=== PATIENT | female | born 1970 | race Caucasian/White ===

== ENCOUNTER → 2020-07-08 | Outpatient (CLI) | payer OTHER ==
--- NOTE | 2020-07-09 08:36 | REP ---
INDICATION: UTERINE LEIOMYOMA COMPARISON: None. TECHNIQUE: Transabdominal pelvic ultrasound followed by transvaginal examination for better evaluation of the endometrium and adnexa with color Doppler evaluation of the ovaries. FINDINGS: Bladder is unremarkable and measures 13.3 x 12.3 x 9.2 cm. Heterogeneous myomatous anteverted uterus measures 10.5 x 5.5 x 8.8 cm. The endometrial complex measures is poorly evaluated due to mass effect from adjacent myomatous changes. No obvious endocervical fluid noted. A posterior fibroid measures 3.7 x 2.5 x 2.6 cm. A right fundal fibroid identified measuring 2.5 x 2.3 x 2.2 cm. Multiple scattered less well-defined fibroids are also suggested. Bilateral ovaries are normal in appearance and vascularity without evidence for torsion. Right ovary measures 2.7 x 1.4 x 2.8 cm; R I = 0.55. Left ovary measures 5.8 x 3.5 x 6.6 cm and includes 5.2 x 5.1 x 3.2 cm simple cyst; R I = 0.60. No significant pelvic fluid or obvious adnexal mass lesion. IMPRESSION: Enlarged heterogeneous myomatous uterus with poorly defined endometrium. 5.2 cm left ovarian cyst. If necessary consider re-evaluation in 4-6 weeks to evaluate for resolution. <Electronically signed by Gómez Ornelas > 07/09/20 0822
== END ==
LOC: M WHC 13:32
PROVIDERS: ATTEND Obstetrics & Gynecology
DX: D25.9 Leiomyoma of uterus, unspecified (principal)

== ENCOUNTER → 2020-07-24 | Outpatient (CLI) | payer OTHER ==
--- NOTE | 2020-07-25 01:35 | REP ---
INDICATION: CARPAL TUNNEL. COMPARISON: None. TECHNIQUE: AP and lateral views of the right wrist. FINDINGS: Carpal bones are intact and normal. Joint spaces are normal. Surrounding soft tissues are unremarkable. IMPRESSION: Normal age-appropriate right wrist radiographs <Electronically signed by Gómez Ornelas > 07/25/20 0131
== END ==
LOC: M SOG 11:58
PROVIDERS: ATTEND Orthopaedic Surgery Sports Medicine
DX: G56.01 Carpal tunnel syndrome, right upper limb (principal)

== ENCOUNTER → 2020-08-08 | Outpatient (CLI) | payer OTHER ==
[~2020-08-08] MED LIST: ADDE15CA3 PO; ADDE1TAB20 PO; D 1010002 PO; D31000TA2 PO; MAGN400C2 PO; SM M250T PO
== END ==
LOC: M LABSMTC 10:40
PROVIDERS: ATTEND Anesthesiology
DX: Z01.812 Encounter for preprocedural laboratory examination (principal); Z20.822 Contact with and (suspected) exposure to COVID-19

== ENCOUNTER 2020-08-13 10:58 | Day surgery (SDC) | payer OTHER ==
[~2020-08-13] VITALS: Ht 165.1 cm; Wt 89.8 kg
[~2020-08-13 10:58] MED LIST changes: +LIDOCAINE 1% MDV 20ML VIAL SQ PRN; +LR 1,000 ML IV ONE; +ceFAZolin SOD 2 GM in IV 1 EA IV ONE
[2020-08-13] MEDS ORDERED: ONDANSETRON 4MG/2ML VIAL As Ordered ONE (12:51)
[2020-08-13] MEDS ORDERED: LIDOCAINE 2% 100MG/5ML SDV (FOR ANES.) As Ordered ONE (12:51)
[2020-08-13] MEDS ORDERED: fentaNYL 100 MCG/2 ML INJECTION (J3010) As Ordered ONE (12:53)
[2020-08-13] MEDS ORDERED: propofoL 500 MG/50 ML VIAL As Ordered ONE (12:53)
[2020-08-13] MEDS ORDERED: MIDAZOLAM INJ 2MG/2ML VIAL (J2250 PER 1MG) As Ordered ONE (12:53)
[2020-08-13] MEDS ORDERED: BUPIVACAINE/EPIN 0.25% 30 ML VIAL As Ordered ONE (13:38)
[2020-08-13 15:27] VITALS: BP 111/58
--- NOTE | 2020-08-13 15:44 | RO ---
OPERATIVE NOTE DATE OF OPERATION: 08/13/2020 SURGEON: Jeff Sanz MD. TECHNICIAN PREVENTATIVE MEDICINE: Lobo. TYPE OF ANESTHESIA: Local/MAC. PREOPERATIVE DIAGNOSIS: Right carpal tunnel syndrome. POSTOPERATIVE DIAGNOSIS: Right carpal tunnel syndrome. PLANNED PROCEDURE: Right open carpal tunnel release. PROCEDURE PERFORMED: Right open carpal tunnel release. OPERATIVE PREAMBLE: This is a 50-year-old female with signs and symptoms consistent with carpal tunnel syndrome. She wished to go ahead with carpal tunnel release. I marked her right upper extremity. The patient was wondering about cubital tunnel. Unfortunately, we were not able to perform a cubital tunnel release potentially for her today, as she is unable to undergo general anesthetic due to concern for tuberculosis, so decided to make the decision to proceed with open carpal tunnel release despite her having some symptoms in the fourth and fifth digits and also with symptoms that seemed to be coming from the median nerve in the first three digits. She had no further questions and wished to proceed. I marked the right upper extremity. OPERATIVE REPORT: The patient was brought to the operating theater. The bed was turned 90 degrees. The patient was placed supine on the operating room table. Then, 2 grams of IV Ancef was administered. Local sedation was used. The limb was prepped and draped in the usual sterile fashion with chlorhexidine based prep solution allowing over three minutes for prep solution drying time prior to draping. An 18-inch tourniquet was used on the right upper extremity, however, not inflated. Preoperative timeout was performed to confirm the site, the patient, and surgery. I began by using 4 cc of 0.25% Marcaine with 1:100,000 epinephrine in and around the proposed incision site. The proposed incision site was longitudinal just distal to the wrist crease in line with the fourth digit ulnar border. Once the patient was properly anesthetized, I made a small one-half inch incision centered in that area. I carried dissection down through skin and subcutaneous tissue achieving meticulous hemostasis. I incised the palmar fascia in line with the skin incision, as well as the transverse carpal ligament in line with the skin incision, fully proximally and distally, ensuring complete release. I made a small leaflet from the radial side of the transverse carpal ligament. I ensured a complete release. I thoroughly irrigated the wound followed by closure of the subcutaneous tissue with 2-0 Vicryl sutures and 3-0 Ethilon in a horizontal mattress fashion and one simple suture distally. The skin was cleaned with a wet-to-dry dressing followed by application of Xeroform 4 x 8 gauze and then over-wrapped with Silvia dressing. The patient was woken up from sedation and transferred off of the operating room table and taken to the postanesthesia care unit in stable condition. All sponge counts, needle counts, and instrument counts were correct. Estimated blood loss 10 mL. PLAN: 1. The plan for patient is to have gentle range of motion of the hand, wrist, and elbow. 2. Follow up in the office in two weeks' time. 3. Change dressing on postop day one and avoid getting it wet for the first two weeks. 4. Prescription is being sent to her pharmacy of choice electronically with appropriate narcotic counseling.
== END 2020-08-13 15:50 | disposition home or self-care (01) ==
LOC: M SDC 10:58
PROVIDERS: ATTEND Orthopaedic Surgery Sports Medicine
DX: G56.01 Carpal tunnel syndrome, right upper limb (principal); K21.9 Gastro-esophageal reflux disease without esophagitis; G43.909 Migraine, unspecified, not intractable, without status migrainosus; F43.10 Post-traumatic stress disorder, unspecified; Z79.899 Other long term (current) drug therapy; Z88.8 Allergy status to other drugs, medicaments and biological substances
CPT/HCPCS: 64721; J0690; J2250; J2405; J3010

== ENCOUNTER → 2020-08-13 | Outpatient (REF) | payer OTHER | LOC: M SFHCWAGY 08-12 17:39 | PROVIDERS: ATTEND Obstetrics & Gynecology | DX: D25.9 Leiomyoma of uterus, unspecified (principal) ==

== ENCOUNTER → 2020-08-20 | Outpatient (CLI) | payer OTHER ==
[~2020-08-20] MED LIST changes: -LIDOCAINE 1% MDV 20ML VIAL SQ PRN; -LR 1,000 ML IV ONE; -ceFAZolin SOD 2 GM in IV 1 EA IV ONE
== END ==
LOC: M LABSMTC 09:38 → MERGE 09:40
PROVIDERS: ATTEND Anesthesiology
DX: Z01.812 Encounter for preprocedural laboratory examination (principal); Z20.822 Contact with and (suspected) exposure to COVID-19

== ENCOUNTER 2020-08-25 08:09 | Day surgery (SDC) | payer OTHER ==
[2020-08-25] VITALS (8 sets, daily range): BP systolic 100–115; BP diastolic 56–64
[~2020-08-25] VITALS: Ht 165.1 cm; Wt 91.1 kg
[~2020-08-25 08:09] MED LIST changes: +LR 1,000 ML IV ONE; +ceFAZolin SOD 2 GM in IV 1 EA IV ONE
[2020-08-25] MEDS ORDERED: dexameTHASONE 4 MG/ML 1ML VIAL (J1100 PER 1MG) As Ordered ONE (08:27)
[2020-08-25] MEDS ORDERED: LIDOCAINE 2% 100MG/5ML SDV (FOR ANES.) As Ordered ONE (08:27)
[2020-08-25] MEDS ORDERED: MIDAZOLAM INJ 2MG/2ML VIAL (J2250 PER 1MG) As Ordered ONE (08:27)
[2020-08-25] MEDS ORDERED: fentaNYL 100 MCG/2 ML INJECTION (J3010) As Ordered ONE (08:27)
[2020-08-25] MEDS ORDERED: propofoL 200 MG/20 ML VIAL As Ordered ONE (08:27)
[2020-08-25] MEDS ORDERED: SUGAMMADEX SODIUM 500 MG/5 ML VIAL (BRIDION) As Ordered ONE (08:27)
[2020-08-25] MEDS ORDERED: ONDANSETRON 4MG/2ML VIAL As Ordered ONE (08:27)
[2020-08-25] MEDS ORDERED: KETOROLAC 60MG 2ML VIAL As Ordered ONE (08:27)
[2020-08-25] MEDS ORDERED: ACETAMINOPHEN 1000MG 100ML IV BTL (OFIRMEV) (J0131 PER 10MG) As Ordered ONE (08:27)
[2020-08-25] MEDS ORDERED: ROCURONIUM BROMIDE 50 MG/5 ML VIAL As Ordered ONE ×2 (08:27→10:52)
[2020-08-25] MEDS ORDERED: HYDROmorphone HCL 2 MG/ML 1ML VIAL (J1170) As Ordered ONE (08:28)
[2020-08-25 08:39] LABS: HEMATOCRIT 40.3 % (36.0-47.0); HEMOGLOBIN 13.1 g/dl (12.0-15.5); MEAN CORPUSCULAR HEMOGLOBIN 29.4 pg (27.0-33.0); MEAN CORPUSCULAR HGB CONC 32.5 g/dl (32.0-36.5); MEAN CORPUSCULAR VOLUME 90.6 fl (80.0-96.0); PLATELET COUNT, AUTOMATED 322 10^3/uL (150-450); RED BLOOD COUNT 4.45 10^6/uL (4.00-5.40); WHITE BLOOD COUNT 5.2 10^3/uL (4.0-10.0)
[2020-08-25 09:02] LABS: HCG, SERUM QUALITATIVE NEGATIVE (NEGATIVE)
[2020-08-25] MEDS ORDERED: BUPIVACAINE HCL 0.25% 30ML VIAL As Ordered ONE (09:07)
[2020-08-25] MEDS ORDERED: METHYLENE BLUE 0.5% (5MG/ML) 10 ML AMP (PROVAYBLUE) As Ordered ONE (09:07)
[2020-08-25] MEDS ORDERED: SCOPOLAMINE 1MG TRANSDERMAL PATCH TOP ONE (09:25)
--- NOTE | 2020-08-25 11:58 | ROOPDOC ---
[facility] Report Of Operation Report of Operation DATE OF PROCEDURE: 08/25/2020 PREPROCEDURE DIAGNOSES: Chronic pelvic pain, uterine leiomyomas, ovarian cysts POSTPROCEDURE DIAGNOSES: Same (enlarged bilateral ovarian cysts) PROCEDURE: Robotic-assisted total laparoscopic hysterectomy, bilateral salpingo- oophorectomy, cystoscopy SURGEON: Evgeny Diaz D.O. FACOG COMPUTER INSTRUCTOR: Amada Farmer (essential role as first coat sander in all steps of the procedure, especially uterine manipulation) ANESTHESIA: General endotracheal. ESTIMATED BLOOD LOSS: Approximately 150 mL. FLUIDS REPLACED: 1500 mL LR URINE OUTPUT: 200 mL COMPLICATIONS: None. FINDINGS: Abnormal ovaries bilaterally; enlarged, cystic masses on each ovary, about 5-6 cm in greatest dimension per ovary. Although the original surgical plan was to retain both ovaries, the possibility of bilateral oophorectomy was discussed preoperatively should one or both ovaries look abnormal at the time of surgery. Uterus was approximately 11 centimeters in greatest dimension. Cystoscopy: Bilateral ureteral orifice efflux, no bladder injury/suture material. PREOPERATIVE ANTIBIOTIC PROPHYLAXIS: Ancef 2 g IV 1. SPECIMEN(S): Uterus w/ cervix, bilateral fallopian tubes and ovaries DESCRIPTION OF PROCEDURE: The patient was counseled, consented on the respective benefits, indications, alternatives of procedure. Informed consent was obtained. She was taken to the operating room with an IV running. She was placed on the operating table in dorsal supine position. Gen. anesthesia was administered and the airway was secured without any difficulty. She was placed in the low lithotomy position. . She was prepared and draped in the normal sterile fashion. A time out was performed per protocol. A Garvin catheter was placed under sterile conditions. A sterile speculum was placed resulting in good visualization of the cervix. A single-tooth tenaculum was used to grasp the anterior lip cervix. The cervix was sequentially dilated with Chadwick dilators. A V-Care uterine manipulator was placed without any difficulty. The single-tooth tenaculum was removed, as well as the speculum. A sterile glove switch was performed. Attention was turned to the abdomen. A 2mm incision was made in the umbilicus, and through this incision a Veress needle was inserted into the intraperitoneal cavity. Intraperitoneal placement was confirmed with ease of flow of normal saline, positive drop test, no return on aspiration, and an opening pressure of less than 10 mmHg upon initial insufflation. The abdomen was insufflated with 2 L of gas. The Veress needle was removed. A supraumbilical 8 mm incision was made. Through this incision, the robotic trochar/cannula was inserted into the intraperitoneal cavity under direct visualization. No incidental bleeding nor injury was noted. Patient was placed in 30 Trendelenburg. The right and left trocars/cannulas were placed on both the right and left side through 8 mm incisions, guided by laparoscopic visualization. No incidental bleeding nor injury was noted. The robot was docked in typical fashion. The instruments were inserted, guided by laparoscop ic visualization. My attention was turned to the robotic console. Using the vessel sealer device, the right and left fallopian tubes were amputated. The fallopian tubes were brought through the assist-port cannula without any difficulty. The right uter o-ovarian ligament and right round ligament were sequentially clamped, coagulated and transected with the vessel sealer device. The vesicouterine peritoneum was dissected with the vessel sealer device to create the bladder flap, thus mobilizing the lower uterine segment and cervix off of the bladder. The right uterine vasculature was sequentially clamped, coagulated and transected above and medial to the rim of the colpotomy cup. The left utero- ovarian ligament and left round ligament were sequentially clamped, coagulated and transected with the vessel sealer device. The remainder of the bladder flap was dissected using the vessel sealer device and blunt dissection. The left uterine vasculature was sequentially clamped, coagulated and transected above and medial to the rim of the colpotomy cup. The outline of the entire V- care colpotomy cup was able to be delineated. Excellent blanching of the uterus was noted. A circumferential colpotomy was performed using the da Hernan monopolar margarito, following the contour of the cup. The amputated cervix and uterus were brought through the colpotomy into and out of the vagina, intact as one unit. The right IP ligament was identified and elevated. The right ureter was identified and noted to be well away from the planned surgical pedicle. The right IP ligament was sequentially clamped, coagulated and transected with the vessel sealer device. The amputated right ovary and fallopian tube were put into the vagina through the colpotomy. In similar fashion, the left IP ligament was identified and elevated. The left ureter was identified and noted to be well away from the planned surgical pedicle. The left IP ligament was sequentially clamped, coagulated and transected with the vessel sealer device. Amputated left ovary and fallopian tube were put into the vagina through the colpotomy. All specimens were removed from the vagina and sent to pathology for permanent section. A laparotomy sponge was placed in a sterile glove and then placed into the vagina to maintain pneumoperitoneum. The colpotomy was closed with the V-lock barbed suture in running fashion, thus creating the vaginal cuff. Excellent hemostasis was noted throughout the steps above. Rere was placed over the vaginal cuff to ensure hemostasis. The in struments were removed from the abdomen and the robot was un-docked. The gas was released from the abdomen and the patient was taken out of Trendelenburg. I re-scrubbed, and attention was turned to the pelvis. The Garvin catheter was removed. The cystoscope was placed transurethrally into the bladder and normal saline was instilled. No bladder injury/suture material was noted. IV methylene blue had been administered by anesthesia and bilateral UO efflux was confirmed. The fluid was drained out of the bladder through the cystoscope device, then the cystoscope was removed. The vagina was copiously irrigated. A sterile digital vaginal exam revealed no significant bleeding and an intact vaginal cuff. A sterile glove switch was performed. The da Hernan cannulas were removed. The skin incisions were closed with 4-0 Monocryl in subcuticular fashion. Sponge, needle and instrument counts were correct per protocol. The patient tolerated the entire procedure very well. She was transferred to the PACU in good and stable condition. DO JIGNA Rubin JONATHAN R. DO Aug 25, 2020 11:58
[2020-08-25] MEDS ORDERED: OXYC1TAB23 PO (11:59)
[2020-08-25] MEDS ORDERED: COLA100C5 PO (12:00)
[2020-08-25] MEDS ORDERED: IBUP80TA PO (12:00)
[2020-08-25] MEDS ORDERED: ONDANSETRON 4MG/2ML VIAL IV PRN ×2 (12:10→12:15)
[2020-08-25] MEDS ORDERED: LR 1,000 ML IV SCH (12:10)
[2020-08-25] MEDS ORDERED: fentaNYL 100 MCG/2 ML INJECTION (J3010) IV PRN (12:10)
[2020-08-25] MEDS ORDERED: HYDROMORPHONE HCL 0.5 MG/ 0.5 ML SYRINGE (J1170 PER 1) IV PRN (12:10)
[2020-08-25] MEDS: oxyCODONE 5MG TAB PO PRN ×2 (12:12→12:45)
[2020-08-25] MEDS ORDERED: PERCOCET 5MG/325MG TAB PO PRN (12:15)
[2020-08-25] MEDS ORDERED: diphenhydrAMINE 50MG/ML VIAL (J1200) IV PRN (12:15)
[2020-08-25] MEDS ORDERED: MORPHINE 4 MG/ML 1ML VIAL/SYRINGE (J2270) IV PRN (12:15)
[2020-08-25] MEDS ORDERED: KETOROLAC 30 MG/ML 1ML VIAL IV PRN (12:15)
[2020-08-25] MEDS: ADDERALL 5 MG TAB PO SCH ×2 (13:19→19:29)
[2020-08-25] MEDS: LR 1,000 ML IV SCH ×2 (14:27→22:38)
[2020-08-25] MEDS: PERCOCET 5MG/325MG TAB PO PRN (19:32)
[2020-08-25] MEDS ORDERED: MONTELUKAST 10 MG TAB PO ONE (21:00)
[2020-08-26 02:00] VITALS: BP 108/62
[2020-08-26] MEDS: PERCOCET 5MG/325MG TAB PO PRN ×2 (05:19→13:56)
[2020-08-26 06:00] VITALS: BP 108/64
[2020-08-26] MEDS: LR 1,000 ML IV SCH (06:21)
[2020-08-26] MEDS: ADDERALL 5 MG TAB PO SCH (07:49)
[2020-08-26 10:00] VITALS: BP 102/78
[2020-08-26 14:00] VITALS: BP 125/73
== END 2020-08-26 17:28 | disposition home or self-care (01) ==
LOC: M SDC 08:09 → M MSPAV 12:57 → M SDC 08-26 17:28
PROVIDERS: ATTEND Obstetrics & Gynecology
DX: D25.9 Leiomyoma of uterus, unspecified (principal); D27.0 Benign neoplasm of right ovary; D27.1 Benign neoplasm of left ovary; R10.2 Pelvic and perineal pain; R91.8 Other nonspecific abnormal finding of lung field; F90.9 Attention-deficit hyperactivity disorder, unspecified type; M51.9 Unspecified thoracic, thoracolumbar and lumbosacral intervertebral disc disorder; K76.89 Other specified diseases of liver; R42 Dizziness and giddiness; Z22.7 Latent tuberculosis; R06.83 Snoring; F43.10 Post-traumatic stress disorder, unspecified; Z79.899 Other long term (current) drug therapy; Z88.8 Allergy status to other drugs, medicaments and biological substances
CPT/HCPCS: 36415; 58573; 84703; 85027; 86850; 86900; 86901; 88307; 96360; 96361; J0131; J0690; J1100; J1170; J1885; J2250; J2405; J3010; Q9968

== ENCOUNTER → 2021-03-26 | Outpatient (CLI) | payer OTHER ==
[~2021-03-26] MED LIST changes: +COLA100C5 PO; +IBUP80TA PO; -LR 1,000 ML IV ONE; +OXYC1TAB23 PO; -ceFAZolin SOD 2 GM in IV 1 EA IV ONE
--- NOTE | 2021-03-26 12:18 | REP ---
INDICATION: LESION OF ULNAR NERVE/CARPAL TUNNEL COMPARISON: None. TECHNIQUE: AP, lateral, oblique views left wrist. FINDINGS: The carpal bones, surrounding osseous structures, soft tissues, and joint spaces are normal. There is no evidence for acute fracture or dislocation. No subcutaneous emphysema or radiodense foreign body. No obvious soft tissue lesion identified by radiographic evaluation. IMPRESSION: Normal wrist series. No obvious soft tissue lesion identified. <Electronically signed by Gómez Ornelas > 03/26/21 1160
--- NOTE | 2021-03-26 12:19 | REP ---
INDICATION: LESION OF ULNAR NERVE/CARPAL TUNNEL. COMPARISON: None. TECHNIQUE: AP, lateral and axial views of the left elbow FINDINGS: Osseous structures, joint spaces, and surrounding soft tissues appear age-appropriate and normal. No acute or healed injury. Anterior and posterior fat pads are in normal position. Surrounding soft tissues are unremarkable. IMPRESSION: Normal age-appropriate left elbow radiographs. <Electronically signed by Gómez Ornelas > 03/26/21 3248
== END ==
LOC: M SOG 11:24
PROVIDERS: ATTEND Orthopaedic Surgery Sports Medicine
DX: G56.22 Lesion of ulnar nerve, left upper limb (principal); G56.03 Carpal tunnel syndrome, bilateral upper limbs

== ENCOUNTER → 2021-05-29 | Outpatient (CLI) | payer OTHER ==
[~2021-05-29] MED LIST changes: +ALBU83IN INH; +EQL50TAB2 PO; +MELO15TA28 PO; +NIAC1TAB14 PO
== END ==
LOC: M LABSMTC 10:04
PROVIDERS: ATTEND Anesthesiology
DX: Z01.818 Encounter for other preprocedural examination (principal); Z11.52 Encounter for screening for COVID-19

== ENCOUNTER 2021-06-03 07:04 | Day surgery (SDC) | payer OTHER ==
[~2021-06-03] VITALS: Ht 165.1 cm; Wt 93.4 kg
[~2021-06-03 07:04] MED LIST changes: +LIDOCAINE 1% MDV 20ML VIAL SQ PRN; +LR 1,000 ML IV ONE; +ceFAZolin SOD 2 GM in IV 1 EA IV ONE
[2021-06-03] MEDS ORDERED: BUPIVACAINE/EPIN 0.25% 30 ML VIAL As Ordered ONE (08:18)
[2021-06-03] MEDS ORDERED: ONDANSETRON 4MG/2ML VIAL As Ordered ONE (08:46)
[2021-06-03] MEDS ORDERED: dexameTHASONE 4 MG/ML 1ML VIAL (J1100 PER 1MG) As Ordered ONE (08:46)
[2021-06-03] MEDS ORDERED: KETOROLAC 60MG 2ML VIAL As Ordered ONE (08:46)
[2021-06-03] MEDS ORDERED: propofoL 200 MG/20 ML VIAL As Ordered ONE (08:46)
[2021-06-03] MEDS ORDERED: LIDOCAINE 2% 100MG/5ML SDV (FOR ANES.) As Ordered ONE (08:46)
[2021-06-03] MEDS ORDERED: fentaNYL 100 MCG/2 ML INJECTION As Ordered ONE (08:47)
[2021-06-03] MEDS ORDERED: MIDAZOLAM INJ 2MG/2ML VIAL (J2250 PER 1MG) As Ordered ONE (08:47)
[2021-06-03 09:40] VITALS: BP 135/84
[2021-06-03] MEDS ORDERED: ONDANSETRON 4MG/2ML VIAL IV PRN ×2 (09:50→10:55)
[2021-06-03] MEDS ORDERED: METOCLOPRAMIDE INJ 10MG/2ML VIAL (J2765 PER 1) IV PRN (09:50)
[2021-06-03] MEDS ORDERED: PERCOCET 5MG/325MG TAB PO PRN ×2 (09:50→10:50)
[2021-06-03] MEDS ORDERED: LR 1,000 ML IV SCH ×2 (09:50→10:50)
[2021-06-03] MEDS ORDERED: ACETAMINOPHEN TAB 650MG DOSE (2X325MG) PO PRN (10:50)
[2021-06-03] MEDS ORDERED: MORPHINE 2 MG/ML 1ML VIAL (J2270) IV PRN (10:50)
== END 2021-06-03 09:54 | disposition home or self-care (01) ==
LOC: M SDC 07:04
PROVIDERS: ATTEND Orthopaedic Surgery Sports Medicine
DX: G56.02 Carpal tunnel syndrome, left upper limb (principal); K59.00 Constipation, unspecified; R94.31 Abnormal electrocardiogram [ECG] [EKG]; M51.9 Unspecified thoracic, thoracolumbar and lumbosacral intervertebral disc disorder; G43.909 Migraine, unspecified, not intractable, without status migrainosus; F43.10 Post-traumatic stress disorder, unspecified; Z86.73 Personal history of transient ischemic attack (TIA), and cerebral infarction without residual deficits; J45.909 Unspecified asthma, uncomplicated; R06.83 Snoring; T88.53XD Unintended awareness under general anesthesia during procedure, subsequent encounter; F90.9 Attention-deficit hyperactivity disorder, unspecified type; Z88.8 Allergy status to other drugs, medicaments and biological substances; Z79.899 Other long term (current) drug therapy; Z87.891 Personal history of nicotine dependence
CPT/HCPCS: 64721; J0690; J1100; J1885; J2250; J2405; J3010

== ENCOUNTER → 2021-08-28 | Outpatient (CLI) | payer OTHER ==
[~2021-08-28] MED LIST changes: -D31000TA2 PO; -LIDOCAINE 1% MDV 20ML VIAL SQ PRN; -LR 1,000 ML IV ONE; +VITA100093 PO; -ceFAZolin SOD 2 GM in IV 1 EA IV ONE
== END ==
LOC: M CARPUL 10:47
PROVIDERS: ATTEND Nurse Practitioner Family
DX: R06.00 Dyspnea, unspecified (principal)

== ENCOUNTER → 2021-09-10 | Outpatient (REF) | payer OTHER | LOC: M LAB REF 16:04 | PROVIDERS: ATTEND Surgery | DX: L72.0 Epidermal cyst (principal) ==

== ENCOUNTER → 2021-10-14 | Outpatient (CLI) | payer OTHER | LOC: M SLEEP 20:00 | PROVIDERS: ATTEND Nurse Practitioner Family | DX: R06.83 Snoring (principal) ==

== ENCOUNTER → 2021-10-27 | Outpatient (CLI) | payer OTHER | LOC: M RAD 11:02 | PROVIDERS: ATTEND Surgery | DX: R22.2 Localized swelling, mass and lump, trunk (principal) ==

== ENCOUNTER → 2021-12-21 | Outpatient (CLI) | payer OTHER ==
[~2021-12-21] MED LIST changes: +ALBU2.5V10 INH; -ALBU83IN INH
== END ==
LOC: M PLAIMG 11:10
PROVIDERS: ATTEND Internal Medicine
DX: R91.8 Other nonspecific abnormal finding of lung field (principal)

== ENCOUNTER → 2022-05-17 | Outpatient (CLI) | payer OTHER ==
[~2022-05-17] MED LIST changes: +GNP250TA9 PO
== END ==
LOC: M SOG 09:15
PROVIDERS: ATTEND Orthopaedic Surgery Hand Surgery
DX: M19.09 Primary osteoarthritis, other specified site (principal)

== ENCOUNTER → 2022-05-23 | Outpatient (CLI) | payer OTHER ==
[~2022-05-23] MED LIST changes: -GNP250TA9 PO
== END ==
LOC: M LABSMTC 11:18
PROVIDERS: ATTEND Anesthesiology
DX: Z01.812 Encounter for preprocedural laboratory examination (principal); Z20.822 Contact with and (suspected) exposure to COVID-19

== ENCOUNTER 2022-05-26 06:21 | Day surgery (SDC) | payer OTHER ==
[~2022-05-26] VITALS: Ht 165.1 cm; Wt 93.4 kg
[~2022-05-26 06:21] MED LIST changes: +GNP250TA9 PO; +LIDOCAINE W/EPINEPHRINE 1% 20ML VIAL ID ONE; +SODIUM BICARBONATE 8.4% INJ 50MEQ 50ML VIAL ID ONE
[2022-05-26] MEDS ORDERED: diazePAM 5MG TABLET PO STA (07:08)
[2022-05-26] MEDS ORDERED: BUPIVACAINE HCL 0.5% 30ML VIAL As Ordered ONE (07:24)
[2022-05-26] MEDS ORDERED: POLYSPORIN TOPICAL OINTMENT 15GM As Ordered ONE (07:24)
[2022-05-26] MEDS ORDERED: LIDOCAINE 1% SDV 30ML VIAL As Ordered ONE (07:24)
[2022-05-26 08:02] VITALS: BP 117/66
== END 2022-05-26 08:18 | disposition home or self-care (01) ==
LOC: M SDC 06:21
PROVIDERS: ATTEND Orthopaedic Surgery Hand Surgery
DX: M65.312 Trigger thumb, left thumb (principal); F90.9 Attention-deficit hyperactivity disorder, unspecified type; R42 Dizziness and giddiness; F41.9 Anxiety disorder, unspecified; F32.A Depression, unspecified; M51.9 Unspecified thoracic, thoracolumbar and lumbosacral intervertebral disc disorder; M19.90 Unspecified osteoarthritis, unspecified site; Z79.899 Other long term (current) drug therapy

== ENCOUNTER → 2022-06-16 | Outpatient (CLI) | payer OTHER ==
[~2022-06-16] MED LIST changes: -LIDOCAINE W/EPINEPHRINE 1% 20ML VIAL ID ONE; -SODIUM BICARBONATE 8.4% INJ 50MEQ 50ML VIAL ID ONE
== END ==
LOC: M LABSMTC 11:31
PROVIDERS: ATTEND Anesthesiology
DX: Z01.818 Encounter for other preprocedural examination (principal); Z11.52 Encounter for screening for COVID-19

== ENCOUNTER 2022-06-21 07:07 | Day surgery (SDC) | payer OTHER ==
[~2022-06-21] VITALS: Ht 165.1 cm; Wt 93.8 kg
[~2022-06-21 07:07] MED LIST changes: +LIDOCAINE W/EPINEPHRINE 1% 20ML VIAL XX ONE; +SODIUM BICARBONATE 8.4% INJ 50MEQ 50ML VIAL XX ONE
[2022-06-21] MEDS ORDERED: RA K500C PO (07:33)
[2022-06-21] MEDS ORDERED: [UNRECOGNIZED DRUG - OTHER] TOP (07:33)
[2022-06-21] MEDS ORDERED: zolPIDEM TARTRATE 5 MG TAB PO ONE (09:00)
[2022-06-21] MEDS ORDERED: diazePAM 5MG TABLET PO ONE (09:05)
[2022-06-21] MEDS ORDERED: BUPIVACAINE HCL 0.25% 30ML VIAL As Ordered ONE (09:23)
[2022-06-21] MEDS ORDERED: BACITRACIN OINTMENT 30GM TUBE As Ordered ONE (09:23)
[2022-06-21 10:10] VITALS: BP 128/69
== END 2022-06-21 10:25 | disposition home or self-care (01) ==
LOC: M SDC 07:07
PROVIDERS: ATTEND Orthopaedic Surgery Hand Surgery
DX: M65.311 Trigger thumb, right thumb (principal); Z88.8 Allergy status to other drugs, medicaments and biological substances

== ENCOUNTER → 2023-04-28 | Outpatient (CLI) | payer OTHER ==
[~2023-04-28] MED LIST changes: -LIDOCAINE W/EPINEPHRINE 1% 20ML VIAL XX ONE; +RA K500C PO; -SODIUM BICARBONATE 8.4% INJ 50MEQ 50ML VIAL XX ONE; +[UNRECOGNIZED DRUG - OTHER] TOP
== END ==
LOC: M PAIN 08:00
PROVIDERS: ATTEND Nurse Practitioner Family
DX: M51.16 Intervertebral disc disorders with radiculopathy, lumbar region (principal); G89.29 Other chronic pain; F90.9 Attention-deficit hyperactivity disorder, unspecified type; Z79.82 Long term (current) use of aspirin; Z79.899 Other long term (current) drug therapy; Z87.891 Personal history of nicotine dependence; Z88.8 Allergy status to other drugs, medicaments and biological substances

== ENCOUNTER → 2023-06-02 | Outpatient (CLI) | payer OTHER | LOC: M PAIN 12:45 | PROVIDERS: ATTEND Anesthesiology | DX: M79.10 Myalgia, unspecified site (principal); M54.6 Pain in thoracic spine; Z80.8 Family history of malignant neoplasm of other organs or systems; Z87.891 Personal history of nicotine dependence; Z88.8 Allergy status to other drugs, medicaments and biological substances; Z79.899 Other long term (current) drug therapy ==

== ENCOUNTER → 2023-07-07 | Outpatient (CLI) | payer OTHER | LOC: M PAIN 16:15 | PROVIDERS: ATTEND Anesthesiology | DX: M79.18 Myalgia, other site (principal); M54.6 Pain in thoracic spine; M54.2 Cervicalgia; Z79.899 Other long term (current) drug therapy; Z88.8 Allergy status to other drugs, medicaments and biological substances ==

== ENCOUNTER → 2023-07-27 | Outpatient (CLI) | payer OTHER | LOC: M PAIN 16:15 | PROVIDERS: ATTEND Anesthesiology | DX: M54.50 Low back pain, unspecified (principal); M51.16 Intervertebral disc disorders with radiculopathy, lumbar region; G89.29 Other chronic pain; Z79.1 Long term (current) use of non-steroidal anti-inflammatories (NSAID); Z79.899 Other long term (current) drug therapy; Z87.891 Personal history of nicotine dependence; Z88.8 Allergy status to other drugs, medicaments and biological substances ==

== ENCOUNTER 2023-08-25 07:11 | Observation (INO) | payer OTHER ==
[~2023-08-25] VITALS: Ht 165.1 cm; Wt 97.1 kg
[~2023-08-25 07:11] MED LIST changes: +HYDR30EM TP
[2023-08-25] MEDS ORDERED: LR 1,000 ML IV SCH (07:55)
[2023-08-25] MEDS ORDERED: ACETAMINOPHEN 1000MG 100ML IV BAG As Ordered ONE (08:45)
[2023-08-25] MEDS ORDERED: ONDANSETRON 4MG 2ML VIAL As Ordered ONE (08:45)
[2023-08-25] MEDS ORDERED: LIDOCAINE 2% 100MG/5ML SDV (FOR ANES.) As Ordered ONE (08:45)
[2023-08-25] MEDS ORDERED: ROCURONIUM BROMIDE 50MG/5ML VIAL As Ordered ONE (08:45)
[2023-08-25] MEDS ORDERED: dexmedeTOMIDine (4MCG/ML)200MCG/50ML BTL (PRECEDEX) As Ordered ONE (08:45)
[2023-08-25] MEDS ORDERED: SUGAMMADEX SODIUM 500 MG/5 ML VIAL (BRIDION) As Ordered ONE (08:45)
[2023-08-25] MEDS ORDERED: propofoL 200 MG/20 ML VIAL As Ordered ONE (08:45)
[2023-08-25] MEDS ORDERED: fentaNYL 250 MCG/5 ML INJECTION As Ordered ONE (08:45)
[2023-08-25] MEDS ORDERED: MIDAZOLAM INJ 2MG/2ML VIAL As Ordered ONE (08:46)
[2023-08-25] MEDS: ceFAZolin SOD 2 GM in IV 1 EA IV ONE (10:30)
[2023-08-25] MEDS ORDERED: PHENYLephrine 500MCG 5ML (100MCG/ML) SYRINGE As Ordered ONE (11:05)
[2023-08-25] MEDS ORDERED: ePHEDrine SULFATE 25 MG/5 ML(5MG/ML) SYRINGE As Ordered ONE (11:17)
[2023-08-25] MEDS: HEPARIN SOD (PORCINE) 5000UNITS/ML 1ML VIAL/SYRINGE SQ ONE (11:30)
[2023-08-25] MEDS ORDERED: LACRILUBE (AKWA TEARS) OPHTH OINT 3.5GM As Ordered ONE (11:32)
[2023-08-25] MEDS ORDERED: HYDROmorphone HCL 2MG/ML 1ML VIAL As Ordered ONE (12:14)
[2023-08-25] MEDS: EPINEPHrine INJ 1 MG/ML 1ML AMP As Ordered ONE (13:57)
[2023-08-25] MEDS: LIDOCAINE 1% MDV 20ML VIAL As Ordered ONE (13:59)
[2023-08-25] MEDS: ceFAZolin 2 GM/D5W 50 ML IV BAG As Ordered ONE (14:17)
[2023-08-25] MEDS ORDERED: fentaNYL 100 MCG/2 ML INJECTION IV PRN (16:35)
[2023-08-25] MEDS ORDERED: traMADol 50 MG TAB PO PRN (17:25)
[2023-08-25] MEDS ORDERED: ONDANSETRON 4MG 2ML VIAL IV PRN (17:25)
[2023-08-25] MEDS ORDERED: ACETAMINOPHEN TAB 650MG DOSE (2X325MG) PO PRN (17:25)
[2023-08-25] MEDS: PERCOCET 5MG/325MG TAB PO PRN (17:41)
[2023-08-25] MEDS: ONDANSETRON 4MG 2ML VIAL IV PRN (17:44)
[2023-08-25 18:40] VITALS: BP 135/83; TEMP 97.5; O2SAT 96
[2023-08-25] MEDS: LR 1,000 ML IV SCH (18:41)
[2023-08-25 19:36] VITALS: BP 136/86; TEMP 97; O2SAT 93
[2023-08-25] MEDS ORDERED: HOME MED LIST COMPLETE! XX SCH ×2 (20:15→21:45)
[2023-08-25 20:36] VITALS: BP 135/86; TEMP 97.2; TEMP 97.8; O2SAT 95
[2023-08-25 21:37] VITALS: BP 110/71; TEMP 97.6; O2SAT 88
[2023-08-25] MEDS ORDERED: OPER4LIQ TOP (21:39)
[2023-08-25] MEDS ORDERED: MAGN400T35 PO (21:39)
[2023-08-25] MEDS ORDERED: OMEG10002 PO (21:39)
[2023-08-25] MEDS ORDERED: MUPI2OI TOP (21:39)
[2023-08-25] MEDS ORDERED: AMPH1TAB2 PO (21:39)
[2023-08-25] MEDS ORDERED: VITA500045 PO (21:39)
[2023-08-25] MEDS ORDERED: MONT10TA97 PO (21:39)
[2023-08-25] MEDS ORDERED: MUPI30CR TOP (21:39)
[2023-08-25] MEDS ORDERED: LORA-1041 PO (21:39)
[2023-08-25 22:37] VITALS: BP 108/69; TEMP 97.9; O2SAT 93
[2023-08-25 23:37] VITALS: BP 115/72; TEMP 98.1; O2SAT 94
[2023-08-26] MEDS: ceFAZolin SOD 1 GM in D5W MINI-BAG PLUS 50 ML IV SCH (00:22)
[2023-08-26 00:38] VITALS: BP 111/68; O2SAT 92
[2023-08-26 01:19] VITALS: BP 109/62; TEMP 98.1; O2SAT 95
[2023-08-26 06:18] VITALS: BP 108/61; TEMP 97.7; O2SAT 94
[2023-08-26] MEDS: ADDERALL 5 MG TAB PO SCH (08:51)
[2023-08-26] MEDS ORDERED: PERCOCET PO (10:17)
[2023-08-26] MEDS ORDERED: AUGM500T34 PO (10:20)
== END 2023-08-26 14:10 | disposition home or self-care (01) ==
LOC: M SDC 07:11 → M ED INP 17:21 → M MS5PR 18:25
PROVIDERS: ADMIT Plastic Surgery Surgery of the Hand; ATTEND Plastic Surgery Surgery of the Hand
DX: T85.44XA Capsular contracture of breast implant, initial encounter (principal); Y81.2 Prosthetic and other implants, materials and accessory general- and plastic-surgery devices associated with adverse incidents; Z98.82 Breast implant status; M54.2 Cervicalgia; F43.10 Post-traumatic stress disorder, unspecified; Z88.8 Allergy status to other drugs, medicaments and biological substances; Z79.899 Other long term (current) drug therapy
CPT/HCPCS: 19380; 87635; 88300; 88302; 96374; 96376; C9290; G0378; J0131; J0171; J0665; J0690; J1100; J1170; J2250; J2371; J2405; J3010

== ENCOUNTER → 2023-09-14 | Outpatient (CLI) | payer OTHER ==
[~2023-09-14] MED LIST changes: +AMPH1TAB2 PO; +AUGM500T34 PO; +LORA-1041 PO; +MAGN400T35 PO; +MONT10TA97 PO; +MUPI2OI TOP; +MUPI30CR TOP; +OMEG10002 PO; +OPER4LIQ TOP; +PERCOCET PO; +VITA500045 PO
== END ==
LOC: M PAIN 10:30
PROVIDERS: ATTEND Anesthesiology
DX: Z53.21 Procedure and treatment not carried out due to patient leaving prior to being seen by health care provider (principal)

== ENCOUNTER 2023-10-06 22:18 | Emergency (ER) | payer OTHER | END 2023-10-06 22:26 | disposition left against medical advice (07) | LOC: M ED 22:18 | DX: Z53.21 Procedure and treatment not carried out due to patient leaving prior to being seen by health care provider (principal) ==

== ENCOUNTER → 2024-03-16 | Outpatient (CLI) | payer OTHER ==
[~2024-03-16] MED LIST changes: +GASTROGRAFIN SOLUTION 30ML As Ordered ONE; +ISOVUE-370 76% 100ML VIAL As Ordered ONE
== END ==
LOC: M RAD 09:06
PROVIDERS: ATTEND Registered Nurse
DX: R93.5 Abnormal findings on diagnostic imaging of other abdominal regions, including retroperitoneum (principal)
CPT/HCPCS: 74177; Q9963; Q9967

== ENCOUNTER 2024-09-12 14:32 | Observation (INO) | payer OTHER ==
[~2024-09-12] VITALS: Ht 165.1 cm; Wt 90.9 kg
[~2024-09-12 14:32] MED LIST changes: -GASTROGRAFIN SOLUTION 30ML As Ordered ONE; -ISOVUE-370 76% 100ML VIAL As Ordered ONE
[2024-09-12 16:02] LABS: BASO % 0.7 % (0.0-1.0); EOS # 0.2 10^3/uL (0.0-0.5); EOS % 3.8 % (0.0-3.0); HEMATOCRIT 39.1 % (36.0-47.0); HEMOGLOBIN 12.9 g/dl (12.0-15.5); LYMPH # 2.5 10^3/uL (1.5-5.0); LYMPH % 45.2 % (24.0-44.0); MEAN CORPUSCULAR HEMOGLOBIN 29.6 pg (27.0-33.0); MEAN CORPUSCULAR VOLUME 89.7 fl (80.0-96.0); MONO # 0.4 10^3/uL (0.0-0.8); MONO % 6.9 % (2.0-8.0); NEUTROPHILS # 2.4 10^3/uL (1.5-8.5); NEUTROPHILS % 43.2 % (36.0-66.0); PLATELET COUNT, AUTOMATED 259 10^3/uL (150-450); RED BLOOD COUNT 4.36 10^6/uL (4.00-5.40); WHITE BLOOD COUNT 5.5 10^3/uL (4.0-10.0)
[2024-09-12 17:35] LABS: ALBUMIN 3.7 G/DL (3.2-5.2); ALKALINE PHOSPHATASE 95 U/L (35-104); ALT/SGPT 16 U/L (7.0-40); AST/SGOT 15 U/L (<34); BILIRUBIN,DIRECT < 0.1 MG/DL (<0.4); BILIRUBIN,TOTAL 0.4 MG/DL (0.3-1.2); BLOOD UREA NITROGEN 19 MG/DL (9-23); CALCIUM LEVEL 8.6 MG/DL (8.5-10.1); CARBON DIOXIDE LEVEL 28 MMOL/L (20-31); CHLORIDE LEVEL 105 MMOL/L (98-107); CK-MB VALUE MASS < 1.0 NG/ML (<3.6); CREATININE FOR GFR 0.84 MG/DL (0.55-1.30); FREE T4 1.07 NG/DL (0.89-1.76); GLOMERULAR FILTRATION RATE > 60.0 (>51); GLUCOSE, FASTING 80 MG/DL (60-100); SODIUM LEVEL 140 MMOL/L (136-145); THYROID STIMULATING HORMONE 1.051 uIU/ML (0.55-4.78); TOTAL PROTEIN 6.9 G/DL (5.7-8.2)
[2024-09-12 17:41] LABS: CPK CREATINE PHOSPHOKINASE 124 U/L (34-145)
[2024-09-12] MEDS ORDERED: ISOVUE-370 76% 100ML VIAL As Ordered ONE (17:46)
[2024-09-12 17:50] LABS: CK-MB VALUE MASS < 1.0 NG/ML (<3.6)
[2024-09-12 17:51] LABS: CPK CREATINE PHOSPHOKINASE 98 U/L (34-145); MB/CK RELATIVE INDEX 1.02 (< OR =4)
[2024-09-12] MEDS ORDERED: K2 P1TAB PO (19:13)
[2024-09-12] MEDS ORDERED: HOME MED LIST COMPLETE! XX SCH (19:15)
[2024-09-12] MEDS: NS (Normal Saline) 0.9% 1,000 ML IV ONE (20:38)
[2024-09-12] MEDS: HEPARIN SOD (PORCINE) 5000UNITS/ML 1ML VIAL/SYRINGE SQ SCH (20:39)
[2024-09-12] MEDS: ACETAMINOPHEN 325 MG TAB PO PRN (22:55)
[2024-09-13 06:13] LABS: HEMOGLOBIN 12.8 g/dl (12.0-15.5); MEAN CORPUSCULAR HEMOGLOBIN 29.1 pg (27.0-33.0); MEAN CORPUSCULAR HGB CONC 32.8 g/dl (32.0-36.5); MEAN CORPUSCULAR VOLUME 88.6 fl (80.0-96.0); PLATELET COUNT, AUTOMATED 238 10^3/uL (150-450)
[2024-09-13 06:31] LABS: ALBUMIN 3.4 G/DL (3.2-5.2); ALKALINE PHOSPHATASE 90 U/L (35-104); ALT/SGPT 15 U/L (7.0-40); AST/SGOT 11 U/L (<34); BILIRUBIN,TOTAL 0.5 MG/DL (0.3-1.2); BLOOD UREA NITROGEN 16 MG/DL (9-23); CALCIUM LEVEL 8.8 MG/DL (8.5-10.1); CARBON DIOXIDE LEVEL 27 MMOL/L (20-31); CHLORIDE LEVEL 108 MMOL/L (98-107); CHOLESTEROL LEVEL 182 MG/DL (<200); CHOLESTEROL RISK RATIO 3.54 (<5); CREATININE FOR GFR 0.72 MG/DL (0.55-1.30); GLOMERULAR FILTRATION RATE > 60.0 (>51); GLUCOSE, FASTING 87 MG/DL (60-100); HDL CHOLESTEROL 51.3 MG/DL (>40); LDL CHOLESTEROL 116.5 MG/DL (<100); NON-HDL-C 130.7 MG/DL; POTASSIUM SERUM 4.2 MMOL/L (3.5-5.1); SODIUM LEVEL 143 MMOL/L (136-145); TOTAL PROTEIN 6.4 G/DL (5.7-8.2); TRIGLYCERIDES LEVEL 71 MG/DL (<150)
[2024-09-13 07:49] LABS: HEMOGLOBIN A1c 4.7 % (4.0-6.0)
[2024-09-13] MEDS: ATORVASTATIN 20 MG TAB PO SCH (10:25)
[2024-09-13] MEDS: ASPIRIN 81MG ENTERIC TABLET PO SCH (10:34)
[2024-09-13 11:25] VITALS: BP 120/72; TEMP 97.7; O2SAT 95
[2024-09-13] MEDS ORDERED: ASPI81TAEC PO (14:02)
[2024-09-13] MEDS ORDERED: ATOR40TA75 PO (14:02)
[2024-09-13] MEDS ORDERED: MECL-136 PO (16:06)
[2024-09-13] MEDS ORDERED: ROSU20TA86 PO (16:16)
== END 2024-09-13 16:58 | disposition home or self-care (01) ==
LOC: M ED 14:32 → M ED INP 14:33 → M MSPAV 09-13 11:35
PROVIDERS: ADMIT Student in an Organized Health Care Education/Training Program; ATTEND Internal Medicine
DX: R55 Syncope and collapse (principal); H81.10 Benign paroxysmal vertigo, unspecified ear; I25.10 Atherosclerotic heart disease of native coronary artery without angina pectoris; I51.7 Cardiomegaly; I25.2 Old myocardial infarction; I49.9 Cardiac arrhythmia, unspecified; G43.109 Migraine with aura, not intractable, without status migrainosus; E78.5 Hyperlipidemia, unspecified; F32.A Depression, unspecified; F41.9 Anxiety disorder, unspecified; F43.10 Post-traumatic stress disorder, unspecified; J45.909 Unspecified asthma, uncomplicated; Z86.73 Personal history of transient ischemic attack (TIA), and cerebral infarction without residual deficits; Z88.8 Allergy status to other drugs, medicaments and biological substances
CPT/HCPCS: 36415; 70450; 70496; 70498; 70551; 80048; 80053; 80061; 80076; 82550; 82553; 83036; 83735; 84439; 84443; 84484; 85025; 85027; 93005; 93041; 93306; 94760; 96372; 97161; 97165; 99285; G0378; Q9967